=== PATIENT | female | born 2000 | race Caucasian/White ===

== ENCOUNTER → 2020-10-14 | Outpatient (CLI) | payer BC, OTHER ==
[2020-10-14 15:07] LABS: RED BLOOD COUNT 5.26 M/UL (4.00-5.10); WHITE BLOOD COUNT 7.2 K/UL (4.5-11.0)
[2020-10-14 17:11] LABS: BUN/CREATININE RATIO 15 (0-10)
[2020-10-15 08:14] LABS: THYROID PEROXIDASE (TPO) AB <8 IU/mL (0-34)
== END ==
LOC: US 10-11 14:00
PROVIDERS: Internal Medicine Endocrinology, Diabetes & Metabolism
DX: E04.9 Nontoxic goiter, unspecified (principal); R00.2 Palpitations; Z13.1 Encounter for screening for diabetes mellitus
CPT/HCPCS: 36415; 76536; 80053; 83036; 84439; 84443; 84481; 85025; 86376